=== PATIENT | female | born 1970 | race Caucasian/White ===

== ENCOUNTER 2018-11-13 05:07 | Day surgery (SDC) | payer OTHER ==
[2018-11-12 08:51] VITALS: BMI 31.1
[2018-11-13] MEDS ORDERED: MIDAZOLAM HCL 2 MG/2 ML SINGLE DOSE VIAL ONE (07:52)
[2018-11-13] MEDS ORDERED: LIDOCAINE HCL/PF 2% SDV 5ML VIAL ONE (08:10)
[2018-11-13] MEDS ORDERED: DEXAMETHASONE SOD PHOSPHATE 4 MG/1 ML VIAL ONE (08:10)
[2018-11-13] MEDS ORDERED: oxyCODONE HCL 5 MG TABLET PO PRN ×2 (08:13→08:28)
[2018-11-13] MEDS ORDERED: ONDANSETRON 4 MG/2 ML VIAL IVPUSH PRN ×2 (08:13→08:28)
[2018-11-13] MEDS ORDERED: LACTATED RINGERS SOLUTION 1,000 ML IV SCH (08:15)
[2018-11-13] MEDS ORDERED: PROPOFOL 20 ML ONE (08:24)
[2018-11-13] MEDS ORDERED: SUCCINYLCHOLINE CHLORIDE 200 MG/10 ML VIAL ONE (08:25)
--- NOTE | 2018-11-13 08:26 | HP ---
History & Physical Update - Physical Physical: No Change - Assessment Assessment: No Change - Plan Plan: No Change (H&P reviwed , no changes for hysteroscopy resection of submucos myoma. D&C)
[2018-11-13] MEDS ORDERED: IBUPROFEN 600 MG TABLET (FP) PO PRN (08:28)
[2018-11-13] MEDS ORDERED: IBUPROFEN 800 MG/8 ML IJ IVPB PRN (08:28)
[2018-11-13] MEDS ORDERED: ELECTROLYTE-148 SOLN 1,000 ML IV SCH (08:30)
[2018-11-13] MEDS ORDERED: KETOROLAC TROMETHAMINE 30 MG/1 ML VIAL ONE (08:46)
--- NOTE | 2018-11-13 09:35 | OP ---
DATE OF OPERATION: 11/13/2018 PREOPERATIVE DIAGNOSIS: Menometrorrhagia, submucous leiomyoma, and fibroid uterus. POSTOPERATIVE DIAGNOSIS: Menometrorrhagia, submucous leiomyoma, and fibroid uterus. PROCEDURE: Hysteroscopy, dilatation and curettage, resection of submucous myoma. SURGEON: Jossue Cason MD ANESTHESIA: General. ANESTHESIOLOGIST: Lee Bowling MD ESTIMATED BLOOD LOSS: 50 mL. OPERATIVE PROCEDURE: The patient was taken to the operating room, and under adequate general anesthesia in dorsal lithotomy position, examination under anesthesia revealed external genitalia to be normal. Vagina was normal. Cervix was clean, no gross lesion. Uterus was prominent and slightly irregular. Adnexa, no masses were palpable. Then, with a weighted speculum in the vagina, anterior lip of the cervix was grasped with a single-tooth tenaculum, and cervix was gradually dilated with Hegar dilator. Uterine cavity was sounded to 9 cm. Then, Symphion Resectoscope was introduced, and visualization of endocervical canal appeared to be normal. There was an endometrial polyp in the mid body of the uterus and also a posterior submucous myoma was noted. Both cornua region was identified and tubal ostia were visualized. Then, with the Symphion Resectoscope, the first polyp was removed, and then, submucous myoma was resected and suctioned, and then, no active bleeding was seen. Endometrium was curetted. Patient tolerated the procedure well, left the OR in good condition. Bessy [id number]
[2018-11-13 10:22] VITALS: TEMP 98.3
[2018-11-13 11:56] VITALS: BP 120/82; PULSE 85
--- NOTE | 2018-11-14 17:25 | PATH ---
Surgical Pathology Report Patient Name: GERMAN DURON [facility]. Rec. #: [id number] /Age/Gender: 1970 (Age: 48) / F Account: [id number] Location: [facility] SURGICAL Taken: 11/13/2018 Received: 11/13/2018 Reported: 11/14/2018 Physicians: Jossue Cason M.D. Specimen(s) Received A: ENDOMETRIAL CURETTINGS B: FIBROID Clinical History Submucous leiomyoma of uterus, menorrhagia Final Diagnosis A. ENDOMETRIAL CURETTINGS, DILATION AND CURETTAGE: FRAGMENTS OF PROLIFERATIVE ENDOMETRIUM, BROAD BUNDLES OF SMOOTH MUSCLE CONSISTENT WITH SUBMUCOSAL LEIOMYOMA, AND BENIGN CERVICAL TISSUE. B. FIBROID, RESECTION OF SUBMUCOUS MYOMA: BROAD BUNDLES OF SMOOTH MUSCLE CONSISTENT WITH SUBMUCOSAL LEIOMYOMA, POLYPOID FRAGMENTS OF PROLIFERATIVE ENDOMETRIUM, AND SCANT BENIGN CERVICAL TISSUE. Electronically Signed Charmaine Fuller M.D. Gross Description A. Received in formalin labeled "endometrial curettings," is a 2.3 x 1.3 x 0.3 cm aggregate of church-red soft tissue fragments admixed with blood clot. The formalin is filtered and the specimen is entirely submitted in one cassette. B. Received in formalin labeled "fibroid," is a less than 1 g, 1.5 x 1.2 x 0.2 cm aggregate of church soft tissue fragments. The formalin is filtered and the specimen is entirely submitted in one cassette. DL/11/13/2018 saudi11/13/2018
== END 2018-11-13 11:56 | disposition home or self-care (01) ==
LOC: JASU-SURG 05:07
PROVIDERS: ATTEND Obstetrics & Gynecology
PROC: 0UJD8ZZ Inspection of Uterus and Cervix, Via Natural or Artificial Opening Endoscopic (ICD-10-PCS; 2018-11-13)
PROC: 0UB98ZZ Excision of Uterus, Via Natural or Artificial Opening Endoscopic (ICD-10-PCS; principal; 2018-11-13 08:00)
PROC: 0UDB7ZX Extraction of Endometrium, Via Natural or Artificial Opening, Diagnostic (ICD-10-PCS; 2018-11-13 08:00)
DX: N92.1 Excessive and frequent menstruation with irregular cycle (principal); D25.0 Submucous leiomyoma of uterus
CPT/HCPCS: 84703; 88305-TC; 94760

== ENCOUNTER 2019-11-21 07:03 | Day surgery (SDC) | payer OTHER ==
[2019-11-21 07:56] VITALS: BMI 34.7
[2019-11-21] MEDS ORDERED: ROPIVACAINE HCL 0.5% 30ML VIAL ONE (08:30)
[2019-11-21] MEDS ORDERED: MIDAZOLAM HCL 2 MG/2 ML SINGLE DOSE VIAL ONE ×3 (08:30→10:15)
[2019-11-21] MEDS ORDERED: DEXAMETHASONE SOD PHOSPHATE 4 MG/1 ML VIAL ONE (09:56)
[2019-11-21] MEDS ORDERED: ONDANSETRON 4 MG/2 ML VIAL ONE (09:56)
[2019-11-21] MEDS ORDERED: ceFAZolin SODIUM 1 GM VIAL ONE (09:56)
[2019-11-21] MEDS ORDERED: ONDANSETRON 4 MG/2 ML VIAL IVPUSH PRN (10:16)
[2019-11-21] MEDS ORDERED: ACETAMINOPHEN 325 MG TABLET (FP) PO PRN (10:16)
[2019-11-21] MEDS ORDERED: oxyCODONE HCL 5 MG TABLET PO PRN ×2 (10:16)
[2019-11-21] MEDS ORDERED: LACTATED RINGERS SOLUTION 1,000 ML IV SCH (10:30)
[2019-11-21 11:11] VITALS: TEMP 98.2
[2019-11-21 12:34] VITALS: BP 126/44; PULSE 72
--- NOTE | 2019-11-21 15:37 | OP ---
DATE OF OPERATION: 11/21/2019 Done at [facility] SURGEON: Mya Hughes MD CUSTOMER MANAGER: ELEANOR Cooper PREOPERATIVE DIAGNOSES: 1. Right shoulder adhesive capsulitis. 2. Right shoulder impingement syndrome. 3. Right shoulder acromioclavicular joint disease. 4. Right shoulder superior labral tear anterior, posterior type 4 with synovitis. 5. Long head biceps tendon tear. PROCEDURE: 1. Right shoulder arthroscopy with lysis and resection of adhesions, CPT code 16570. 2. Right shoulder arthroscopy with subacromial decompression, CPT code 42004. 3. Right shoulder arthroscopy with resection of clavicle acromioclavicular joint, CPT code 56074. 4. Right shoulder arthroscopy with debridement, CPT code 90780. 5. Right shoulder release of long head biceps tendon in articular portion. FINDINGS: 1. Grade 4 tearing of the superior labrum from anterior to posterior with extension into long head biceps. 2. Partial rotator cuff tear less than 20%. 3. Glenohumeral synovitis with adhesion of scar tissue. 4. Inferior spur distal clavicle with acromioclavicular joint disease and impingement. 5. Type 3 acromion with anterior spurring. 6. Thick scar space, subacromial space with thickened scar tissue. 7. Posterior labral fraying. 8. Central grade 2 cartilage injury glenoid humerus. PROCEDURE: Informed consent was obtained. The patient was taken to the operating room, where the upper extremity was prepped and draped in a sterile fashion. A scalene block was performed by Anesthesia. Manipulation under anesthesia was allowed for full range of motion. Using standard arthroscopic technique, a posterior incision portal was made, which allowed for introduction of a camera into the glenohumeral joint. Under direct visualization, an anterior incision and portal was made. Extensive and thickened synovitis was debrided. Fraying of the labrum was debrided and the superior labrum from anterior to posterior was identified with all loose areas debrided. Any labral tears were taken to a stable rim including identified SLAP lesions. All loose cartilage was debrided. Patient had extensive tearing along the superior labrum extending to biceps tendon. Through a separate anterior incision, the biceps tendon was released, and the remaining portion of the biceps and the superior labrum was debrided down to a stable labral rim. The rotator cuff was identified and evaluated, as were the subacromial and bursal surfaces. The posterior incision portal was redirected to the subacromial space, where a lateral incision and portal was made. Excessive and thickened synovium was removed throughout the subacromial space including the anterior scar tissue, posterior bursa and lateral bursa. The type 2 acromion was converted to a flattened type 1, removing the anterior and lateral spurring. An accessory portal was made at the acromioclavicular joint, removing the inferior spur of the distal clavicle at the acromioclavicular joint allowing for a distal clavicle partial resection. Please note that 1cm of undersurface of clavicle was removed extending into the intra articular portion and through an accessory portal. The shoulder was once again reexamined and all impingement was removed. The shoulder was drained. A single suture was placed in all portals and a sterile dressing was placed. The patient was transferred to the recovery room without complication. The PA listed above was present and assisted at surgery. Their presence was absolutely medically necessary for the completion of the procedure. They helped hold the arthroscopy, pass instruments (and implants when indicated) and the procedure could not have been completed without their assistance. MYA HUGHES M.D. [id number]
== END 2019-11-21 12:45 | disposition home or self-care (01) ==
LOC: FASU 07:03
PROVIDERS: ATTEND Orthopaedic Surgery
PROC: 0RNJ4ZZ Release Right Shoulder Joint, Percutaneous Endoscopic Approach (ICD-10-PCS; 2019-11-21)
PROC: 0RBJ4ZZ Excision of Right Shoulder Joint, Percutaneous Endoscopic Approach (ICD-10-PCS; 2019-11-21)
PROC: 0LS34ZZ Reposition Right Upper Arm Tendon, Percutaneous Endoscopic Approach (ICD-10-PCS; 2019-11-21)
PROC: 0PB94ZZ Excision of Right Clavicle, Percutaneous Endoscopic Approach (ICD-10-PCS; principal; 2019-11-21 10:19)
DX: M75.01 Adhesive capsulitis of right shoulder (principal); M75.41 Impingement syndrome of right shoulder; M19.011 Primary osteoarthritis, right shoulder; M66.821 Spontaneous rupture of other tendons, right upper arm; S43.431A Superior glenoid labrum lesion of right shoulder, initial encounter; X58.XXXA Exposure to other specified factors, initial encounter; Y93.9 Activity, unspecified; Y92.9 Unspecified place or not applicable
CPT/HCPCS: 84703